=== PATIENT | male | born 1965 | race Caucasian/White ===

== ENCOUNTER 2017-12-01 16:08 | Emergency (ER) | payer OTHER ==
[~2017-12-01] VITALS: Ht 175.3 cm; Wt 77.6 kg
[2017-12-01 19:55] VITALS: BP 162/100
== END 2017-12-01 19:55 | disposition home or self-care (01) ==
LOC: ED 16:08
DX: H26.9 Unspecified cataract (principal); I10 Essential (primary) hypertension; E78.00 Pure hypercholesterolemia, unspecified